=== PATIENT | female | born 1965 | race Caucasian/White ===

== ENCOUNTER → 2022-06-07 10:28 | Outpatient (BNVA) | payer MEDICARE, SELFPAY | PROVIDERS: Family Provider Internal Medicine; PCP Internal Medicine; Visit Provider Specialist | DX: M16.12 Unilateral primary osteoarthritis, left hip (principal) | CPT/HCPCS: 73502; 87070; 87641; 99205 ==

== ENCOUNTER 2022-06-20 16:08 | Observation (INO) | payer MEDICARE, SELFPAY ==
[2022-06-16 11:04] VITALS: BMI 22.3
[2022-06-16 11:55] LABS: Basophils # 0.1 10^3/uL (0.0-0.1); Eosinophils # 0.1 10^3/uL (0.0-0.8); Eosinophils % 1.1 %; Hematocrit 41.2 % (37.0-47.0); Hemoglobin 13.6 g/dL (11.5-15.3); Lymphocytes % 37.1 %; Mean Corpuscular Hemoglobin 30.5 pg (28.0-34.0); Mean Corpuscular Volume 92.4 fl (81-99); Mean Platelet Volume 9.9 fL (7.4-10.4); Monocytes # 0.6 10^3/uL (0.2-0.9); Monocytes % 7.9 %; Neutrophils # 4.22 10^3/uL (1.8-7.7); Neutrophils % 52.7 %; Nucleated Red Blood Cells % 0 %; Platelet Count 353 10^3/cmm (130-400); Red Blood Count 4.46 10^6/uL (4.1-5.3)
--- NOTE | 2022-06-16 11:55 | P.ANESASSM_ITS ---
Pre-Anesthetic Assessment Height/Weight: Height 1.6 m Weight 57.153 kg Operation Date: 06/20/22 13:45 Proposed Procedures p LEFT TOTAL HIP ARTHROPLASTY 17090 M16.9(Left) - Jessica Osorio MD Familial anesthetic complications: none Was Beta Peter taken within 24 hours: N/A Was Clonidine taken within 24 hours: N/A Social Tobacco and No alcohol Exam alert, oriented x 3 and regular rate & rhythm Airway Submandibular: within normal limits Cervical ROM: within normal limits Mallampati: Class II Dentition: chipped Pulmonary Chronic Obstructive Pulmonary Disease CV/HEM [place] [facility] [place] Osteoarthritis/DJD Neuropsych MS Anesthetic Plan ASA status: 3 Anesthesia: Regional (specify below) (SAB) Medications/Allergies Home Medications Medication Instructions Recorded Confirmed Last Taken Type albuterol sulfate 90 mcg/actuation 2 puff inhalation Q6H PRN 06/07/22 06/16/22 Unknown History aerosol inhaler Shortness Of Breath Or Wheezing gabapentin 100 mg capsule 100 mg PO BID 06/07/22 06/16/22 06/15/22 History hydrocodone 5 mg-acetaminophen 325 1 tab PO Q4H PRN Pain 06/07/22 06/16/22 06/16/22 History mg tablet lisinopril 10 mg tablet 10 mg PO DAILY 06/07/22 06/16/22 06/16/22 History venlafaxine 100 mg tablet 100 mg PO TID 06/07/22 06/16/22 06/16/22 History venlafaxine 75 mg capsule,extended 75 mg PO DAILY 06/07/22 06/16/22 06/16/22 History release 24 hr Allergies Allergy/AdvReac Type Severity Reaction Status Date / Time No Known Allergies Allergy Verified 06/16/22 11:06 Data Anesthesia 06/16/22 11:20 06/16/22 11:20 Short CBC 06/16/22 Range/Units 11:20 WBC 8.0 (4.0-10.0) 10^3/uL Hgb 13.6 (11.5-15.3) g/dL Hct 41.2 (37.0-47.0) % MCV 92.4 (81-99) fl Plt Count 353 (130-400) 10^3/cmm Neut % (Auto) 52.7 % Neut # (Auto) 4.22 (1.8-7.7) 10^3/uL Cardiac Studies: No Data to Display
[2022-06-16 12:11] LABS: Bilirubin Urine Neg (Negative); Blood Urine Neg (Negative); Glucose Urine UA Norm (Normal); Ketones Urine Negative (Negative); Nitrate Urine Negative (Negative); Protein Urine Neg (Negative); Urine Appearance Clear (CLEAR); Urine Color Yellow (Yellow); pH Urine 6 (5-7)
[2022-06-16 12:12] LABS: Add Urine Microscopic? YES; Leukocyte Esterase Urine Trace (Negative); RBC Urine RARE /hpf (0-2); Urobilinogen Urine Norm (Negative); WBC Urine 0-4 /hpf (0-5)
[2022-06-16 12:15] LABS: Alanine Aminotransferase 6 U/L (0-33); Alkaline Phosphatase 85 U/L (35-105); Anion Gap 12.5 (5-19); Aspartate Amino Transferase 8 U/L (0-32); Blood Urea Nitrogen 11 mg/dL (6-20); Calcium 9.2 mg/dL (8.5-10.5); Carbon Dioxide 29 mmol/L (22-29); Chloride 97 mmol/L (98-107); Globulin 2.9 g/dL (1.3-4.6); Glomerular Filtration Rate 103.8 mL/min (90-130); Glucose 76 mg/dL (65-115); Osmolality Calculated 276 mOsm/kg (285-295); Potassium 4.5 mmol/L (3.5-5.1); Sodium 134 mmol/L (136-145); Total Bilirubin 0.2 mg/dL (0.15-1.2); Total Protein 6.9 g/dL (6.6-8.7)
[2022-06-20] VITALS (18 sets, daily range): BP systolic 133–176; BP diastolic 64–99; PULSE 70–87; RESP 12–18; TEMP 36.6–37.1; O2SAT 96–100; BMI 21.9
[2022-06-20] MEDS: acetaminophen 1,000 MG/100 ML PIGGYBACK 400 MG IV ×2 (12:44→21:22)
[2022-06-20] MEDS: CELEcoxib 200 mg Capsule 400 MG PO (12:46)
[2022-06-20] MEDS: sodium chloride 0.9% 1,000 ML 30 ML IV (12:46)
--- NOTE | 2022-06-20 13:20 | P.ANESUD_ITS ---
Pre-Anesthetic Update Pre-Anesthetic Assessment: Date of Surgery/Procedure: 06/20/22 Preop Kira gnosis: Severe degenerative osteoarthritis left hip Proposed Procedure: Operation Date: 06/20/22 13:45 Proposed Procedures p LEFT TOTAL HIP ARTHROPLASTY 81089 M16.9(Left) - Jessica Osorio MD Any changes to Pre-Anesthetic Assessment?: No Last Intake: Intake Last Liquid Date 06/19/22 Last Liquid Time 10:00 Last Solid Date 06/20/22 Last Solid Time 09:00 Vitals: Temperature 98.1 F 06/20/22 12:31 Temperature Source Temporal Artery S can 06/20/22 12:31 Pulse Rate 84 06/20/22 12:31 Respiratory Rate 18 06/20/22 12:31 Blood Pressure 175/99 06/20/22 12:31 Blood Pressure Rose n 124 06/20/22 12:31 Pulse Oximetry 100 06/20/22 12:31 Oxygen Delivery Me thod 06/20/22 12:36 Exam: Pre-Anes Outpt Exam: alert, oriented x 3, clear to auscultation bilaterally and regular rate & rhythm Other Pertinent Information: Other Pertinent Information: Discussed possibilty of MS exacerbation with spinal and general anesthesia. After discussion with patient, decision was made to proceed with general anesthesia d/t patient preference and potentially lower risk of exacerbation Cardiac Studies: No Data to Display
[2022-06-20] MEDS: vancomycin 1,000 MG in sodium chloride 0.9% 250 ML 250 MG IV (13:25)
[2022-06-20] MEDS: midazolam 1 mg/mL INJ 2 mL 2 MG IVP (13:27)
--- NOTE | 2022-06-20 14:16 | W.PM.OPSUD ---
Surgery/Procedure H&P Update DATE OF PROCEDURE: June 20, 2022 DATE H&P PERFORMED: 06/07/22 H&P UPDATE INFORMATION: I have reviewed H&P completed within last 30 days, I have examined patient prior to procedure, No changes to prior documentation and H[place] is [place] [facility] date indicated PREOP DIAGNOSIS: Severe degenerative osteoarthritis left hip PLANNED PROCEDURE: Operation Date: 06/20/22 13:45 Proposed Procedures p LEFT TOTAL HIP ARTHROPLASTY 98339 M16.9(Left) - Jessica Osorio MD Related Problem List Diagnoses (1) Primary osteoarthritis of left hip:
[2022-06-20] MEDS: ceFAZolin 2,000 MG in sodium chloride 0.9% (plus) 50 ML 100 MG IV ×2 (14:23→22:12)
[2022-06-20] MEDS: tranexamic acid 1,000 mg/10mL SDV 1000 MG IV (14:53)
[2022-06-20] MEDS: ceFAZolin 1,000 mg SDV 1000 MG IRRIGATION (15:00)
--- NOTE | 2022-06-20 17:10 | XRR_ITS ---
PROCEDURE INFORMATION: Exam: XR Pelvis Exam date and time: 06/20/2022 5:32 PM Age: 57 years old Clinical indication: Device placement; Other: Left total hip arthroplasty; Prior surgery; Surgery date: Post-operative (0-2 days); Additional info: Left total hip arthroplasty, low ap pelvis TECHNIQUE: Imaging protocol: Radiologic exam of the pelvis. Views: 1 or 2 view. Total images: 2 COMPARISON: CR XR hip LT 2-3V wo/w pel* [id number] 06/07/2022 10:29 AM FINDINGS: Tubes, catheters and devices: The prosthesis appears near anatomic in positioning. No parallel lucencies adjacent to the prosthesis are seen to suggest loosening. No acute fractures, subluxation, nor dislocation. Bones/joints: Left hip arthroplasty is present. Right hip arthroplasty is present. Dystrophic calcifications adjacent to the right hip unchanged. Soft tissues: Skin isak subcutaneous emphysema are present from recent surgery. Vasculature: Incidental phleboliths noted. Moderate atherosclerotic disease is evident. XR/XR pelvis 1-2V* [id number] IMPRESSION: Status post recent left hip arthroplasty without complication.
--- NOTE | 2022-06-20 17:29 | P.OP_ITS ---
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 Additional adductor contracture. Procedure done: Left total hip arthroplasty with separate incision adductor tenotomy Implants: The [employer]ara total hip system with the following implants: A 52 mm by E Trident II clusterhole acetabular shell with 2 screws size 20 x 6.5 mm and size 15 x 6.5 mm and a dome hole plug, an MDM cementless liner 42 mm inner diameter by E alpha code and Accolade II size 3 with 127 degree neck angle hip stem with a 28 mm outer diameter +4 mm neck offset and a mosque X3 insert size 28 mm inner diameter by 42E. Bone grafting of acetabular cysts utilizing a combination of the [place] DBM plus putty with cancellous bone and Vitoss Specimens removed/disposition: Femoral head to pathology Pathology: Femoral head for sectioning. Surgeon: Jessica Osorio Drive Thru Order Taker: [facility] operating room technicians Anesthesia: General (Intubated, ASA 3) Estimated blood loss (mL): 200 IV fluids (mL): 1,800 Urine output (mL): 450 Complications: None Findings: Severe collapse of the femoral head with significant deformity. Large cystic changes within the acetabulum which were bone grafted with a combination of DBM putty plus and Vitoss. Stability was noted with the leg flexed to 90 degrees. Internal rotation of 90 degrees and adduction of 30 degrees resulted in instability as well. The hip was also stable to external rotation. The adductor tendon was noted to be very tight, and decision was made to perform an adductor tenotomy. Condition: stable Disposition: PACU (Then to floor for postoperative rehabilitation and pain management) Brief History: This is a 57 year old female patient here today for left total hip arthroplasty. She explains her left hip pain has been going on for over a year. She explains in the last 6 months it has significantly worsened. Patient was referred by [facility]ir[facility] hurst, where she was previously evaluated. She reports pain to her left hip radiating into her groin and left lower extremity. She explains she has difficulty walking and has to wobble in order to ambulate.? She explains walking, standing, sitting, and bending causes her pain to become worse. She reports popping and cracking noises. She states her hip pain wakes her up multiple times a night. She rated her pain a 9/10 at her initial visit with me. She reports a surgical history of a right total hip arthroplasty performed in [place] approximately 12 years ago.? She notes that this right total hip resulted in an increased leg length to the right side.? Risks and complications were discussed at the patient's office visit. Consents were signed and questions were answered. Procedure: Patient was brought to the operating theater.? She was transferred to the operating room table.? The patient had a general anesthetic intubated, ASA 3 uneventfully.? Following administration of adequate anesthesia, the patient was placed in full lateral position and held in position with a pegboard.? The patient's left lower extremity was then prepped and draped in usual fashion utilizing DuraPrep.? It was draped free.? Following prepping and draping, a surgical pause was performed. At the time of surgical pause, we identified the site and side of surgery.? We also identified the patient and preoperative surgical markings.? Confirmation was made of equipment availability.? Additionally, the patient's preoperative IV antibiotic, Ancef 2 g as well as vancomycin 1 g due to previous MRSA history, was confirmed as being given in a timely fashion and being the appropriate antibiotic.? She received TXA 1 g preoperatively as well 1 g postoperatively. Following the surgical pause, an incision was made centering over the patient's greater trochanter continuing proximally and distally as necessary to allow access to the hip joint.? Dissection continued through skin and soft tissues using a scalpel, and hemostasis was obtained using electrocautery. The tensor fascia kay was identified and incised longitudinally.? Sciatic nerve was identified and protected throughout the surgical procedure.? A Charnley U retractor was placed after the tensor fascia kay had been incised longitudinally, and the sciatic nerve had been identified.? The piriformis muscle was identified and tagged. Piriformis muscle along with the remaining short external rotators were then incised from the posterior aspect of the hip joint. These were retracted posteriorly. ? The capsule was entered in a T-type fashion with the edges being tagged.? The hip was then dislocated. The head was noted to be very deformed with significant loss of bone and cartilage. There was significant collapse and it was very misshapened. Following hip dislocation, a femoral neck osteotomy was accomplished in the appropriate position. The femoral head was sent to pathology for further evaluation. We then evaluated the acetabulum.? We noted we were able to deepen slightly, however, given the severely misshapen acetabulum, we did not wish to over deepen.? Following femoral neck osteotomy, the femur was retracted anteriorly.? Soft tissues were retracted and the labrum was removed.? Soft tissues were removed from within the acetabulum prior to the reaming process.? We then began reaming.? We deepened the acetabulum utilizing a smaller reamer.? Evaluation of the acetabulum was accomplished, and we were able to ream to 51 mm to allow for a size 52 mm acetabular shell. The acetabular component was impacted into position after the cyst within the acetabulum had been cleared of the fibrous tissue. They were also bone grafted with a combination of DBM putty plus and Vi toss. This was further reamed into the cystic structures by a reamer on reverse. It was noted that the acetabular component matched the bony anatomy.? The cup was noted to seat nicely, but due to the severe sclerotic change about this hip, we elected to place a multiholed cup so that we could place 2 screws for better fixation of the cup. The screws were placed uneventfully and had good purchase.? The MDM cementless liner was impacted into position and care was taken to assure that it completely seated.? Attention was directed to the proximal femur.? The proximal femur was lifted out of the wound with difficulty.? A canal finder was passed, and we then used the reamer to lateralize.? We then began broaching. We broached sequentially and a size 3 gave excellent fit and fill. A calcar reamer was then used.? With the size 3 broach, trial reduction was accomplished initially with a size +0 mm offset femoral head.? The patient was stable with this construct, but it was not felt to have addressed her significant leg length discrepancy from preop. Therefore, we did place a +4 mm offset femoral head.? With this in place, we had the above stabilities, and at that time, we felt that we had restored normal leg lengths.? We also felt that we had excellent stability noted above. Therefore, trial components were removed after the hip was dislocated.? The size 3 Accolade II 127 degree neck angle hip stem was impacted into position without difficulty and onto this was placed a +4 mm offset by 28 mm outer diameter femoral head inside of the MDM size 42E insert with a 28 mm inner diameter.? With this construct, we had the above-noted stability.? The stem was noted to seat nicely prior to placement of the femoral head.? The wound was copiously irrigated with Betadine.? At this time, with all components in appropriate position, the hip was reduced.? Following reduction of the prosthesis once again, we confirmed the stability of the hip.? Leg lengths were also felt to be satisfactory. Being satisfied with the prosthesis, attention was directed to closure.? Closure was accomplished with 0 Vicryl in the capsular tissues.? Piriformis was reattached with 0 Vicryl as well.? Tensor fascia kay was closed with 0 Vicryl in an interrupted fashion.? The subcutaneous tissues were closed with 2 deeper 0 Vicryl suture followed by 2-0 Monocryl.? Vancomycin powder and a Gelfoam thrombi n mixture was placed into the wound as well.? The skin was closed with 3-0 Monocryl followed by Dermabond, Prineo, and OpSite.? The patient was placed in an abduction pillow.? The patient was then rolled onto her back. The groin was prepped with Betadine to allow an abductor tenotomy. The abductor tenotomy was accomplished with a 12 blade. Following accomplishment of the abductor tenotomy, the incision site was addressed with Dermabond and a 4 x 4. She was returned the Recovery Room in a satisfactory condition and will be discharged to the floor for postoperative rehabilitation and pain management.? There were no complications. Related Problem List Diagnoses (1) Primary osteoarthritis of left hip:
--- NOTE | 2022-06-20 17:41 | SUR.PHASEI ---
1722 PT TO PACU 5 AWAKE ALERT TALKATIVE, GOOD RESP EFFORT LT HIP SITE D/I FIRST ICE TO SITE. BILAT FOOT PUMPS ON , DISTAL LT FOOT PINK WARM WITHS STRONG REGULAR PULSE NOTED AND MARKED MONITOR SR WITH NO ECTOPY WARM BLANKETS X 3.
[2022-06-20] MEDS: meperidine 50 mg/mL INJ 12.5 MG IVP (17:42)
--- NOTE | 2022-06-20 17:51 | SUR.PHASEI ---
PT AWAKE ALERT PT SHIVERING SEE MED GIVEN PT REMAINS AWAKE ALERT WARM BLANKETS X 3 TO PT, VSS PT STATES PAIN IS BETTER NOW, NS 1000ML UP AT KVO RATE PER GRAVITY TO RT HAND #20 JELCO. MONITOR REMAINS SR NO ECTOPY, VSS. PT TAKING ICE CHIPS
--- NOTE | 2022-06-20 18:18 | ANE.PACU2 ---
Inpatient post-anesthesia follow up: Airway intact: Yes Vital signs: Temperature 98.3 F Pulse Rate 70 Respiratory Rate 18 Blood Pressure 147/81 Pulse Oximetry 100 Oxygen Delivery Me thod Room Air Oxygen Flow Rate 8 Fraction of Inspir ed Oxygen Hydration adequate: Yes Nausea and vomiting: No Pain level: 1 Mental status: Baseline
--- NOTE | 2022-06-20 18:20 | SUR.PHASEI ---
PT TO FLOOR AWAKE ALERT TALKATIVE WITH FAMILY IN ROOM HANDOFF AT BEDSIDE WITH IDALIA OQUENDO, LT HIP DRESSING D/I UNCHANGED , AND DISTAL LT FOOT UNCHANGED, PT REQUESTS COFFEE TO DRINK ,
[2022-06-20] MEDS: oxyCODONE 5 mg IR Tab/Cap PO ×2 (18:28→22:10)
[2022-06-20] MEDS: gabapentin 100 mg Capsule PO (18:29)
[2022-06-20] MEDS: sennosides-docusate Tablet 2 TAB PO (18:29)
[2022-06-20] MEDS: sulfamethoxazole-trimeth DS 160-800 mg Tablet 1 TAB PO (18:29)
[2022-06-20] MEDS: iron polysaccharide complex 150 mg Capsule PO (18:29)
[2022-06-20] MEDS: calcium carbonate 500 mg Chew Tablet 1000 MG PO (18:29)
[2022-06-20] MEDS: chlorhexidine gluconate 0.12% Btl 473 mL 30 ML MUCOUS MEM (21:22)
[2022-06-20] MEDS: CELEcoxib 200 mg Capsule PO (21:22)
[2022-06-21] VITALS (7 sets, daily range): BP systolic 104–133; BP diastolic 64–82; PULSE 79–88; RESP 16–19; TEMP 36.6–37.5; O2SAT 97–100
[2022-06-21] MEDS: oxyCODONE 5 mg IR Tab/Cap PO ×3 (02:16→10:25)
[2022-06-21 03:56] LABS: Basophils % 0.3 %; Eosinophils % 0.1 %; Hematocrit 28.7 % (37.0-47.0); Hemoglobin 9.4 g/dL (11.5-15.3); Lymphocytes # 1.4 10^3/uL (0.8-4.8); Lymphocytes % 12.2 %; Mean Corpuscular HGB Conc 32.8 g/dL (30.0-36.0); Mean Corpuscular Hemoglobin 30.9 pg (28.0-34.0); Mean Corpuscular Volume 94.4 fl (81-99); Mean Platelet Volume 10.3 fL (7.4-10.4); Monocytes % 8.5 %; Neutrophils % 78.5 %; Nucleated Red Blood Cells % 0 %; Platelet Count 303 10^3/cmm (130-400); Red Blood Count 3.04 10^6/uL (4.1-5.3); Red Cell Distribution Width 14.3 % (12.1-15.1); White Blood Count 11.7 10^3/uL (4.0-10.0)
[2022-06-21] MEDS: acetaminophen 1,000 MG/100 ML PIGGYBACK 400 MG IV ×2 (04:39→12:04)
[2022-06-21 04:52] LABS: Anion Gap 11.6 (5-19); Blood Urea Nitrogen 7 mg/dL (6-20); Calcium 8.4 mg/dL (8.5-10.5); Carbon Dioxide 24 mmol/L (22-29); Chloride 101 mmol/L (98-107); Glomerular Filtration Rate 103.8 mL/min (90-130); Glucose 138 mg/dL (65-115); Osmolality Calculated 274 mOsm/kg (285-295); Potassium 4.6 mmol/L (3.5-5.1); Sodium 132 mmol/L (136-145)
[2022-06-21] MEDS: ceFAZolin 2,000 MG in sodium chloride 0.9% (plus) 50 ML 100 MG IV (05:53)
[2022-06-21] MEDS: aspirin 325 mg EC Tablet PO (08:50)
[2022-06-21] MEDS: venlafaxine ER (24HR) 75 mg Capsule PO (08:51)
[2022-06-21] MEDS: lisinopril 10 mg Tablet PO (08:51)
[2022-06-21] MEDS: calcium carbonate 500 mg Chew Tablet 1000 MG PO (08:52)
[2022-06-21] MEDS: cholecalciferol (vitamin D3) 1,000 unit Tablet 1000 UNIT PO (08:52)
[2022-06-21] MEDS: sennosides-docusate Tablet 2 TAB PO (08:52)
[2022-06-21] MEDS: CELEcoxib 200 mg Capsule PO (08:52)
[2022-06-21] MEDS: multivitamin therapeutic Tablet 1 TAB PO (08:52)
[2022-06-21] MEDS: iron polysaccharide complex 150 mg Capsule PO (08:52)
[2022-06-21] MEDS: sulfamethoxazole-trimeth DS 160-800 mg Tablet 1 TAB PO (08:52)
[2022-06-21] MEDS: chlorhexidine gluconate 0.12% Btl 473 mL 30 ML MUCOUS MEM (08:54)
--- NOTE | 2022-06-21 11:33 | ECG_ITS ---
[facility] Test Date: 2022-06-21 Pat Name: Dyan Baker Department: Room: 261 Gender: Female Resident Program Specialist: : [id number] Requested By: Jessica Osorio Order Number: [id number] Sreedhar MD: Kendra Rascon M.D. Measurements Intervals [place] Rate: 75 P: 71 AR: 119 QRS: 50 QRSD: 93 T: 49 QT: 383 QTc: 430 Interpretive Statements SINUS RHYTHM WITH SHORT AR INTERVAL No previous ECG available for comparison Electronically Signed On 06-21-2022 18:27:05 SERVICE DESK TEAM LEAD by Kendra Rascon M.D. [email or web address]
[2022-06-21 12:18] LABS: Glucose Point of Care 155 mg/dL (70-110)
--- NOTE | 2022-06-21 13:34 | PM.DCS ---
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 Bone grafting of acetabular cysts utilizing a combination of the [employer] DBM plus putty with cancellous bone and Vitoss. Status: Acute (2) Primary osteoarthritis of left hip: Status: Acute Reason for Visit Reason for Visit: Severe osteoarthritis left hip Brief History: This is a 57 year old female patient here today for left total hip arthroplasty. She explains her left hip pain has been going on for over a year. She explains in the last 6 months it has significantly worsened. Patient was referred by [facility], where she was previously evaluated. She reports pain to her left hip radiating into her groin and left lower extremity. She explains she has difficulty walking and has to wobble in order to ambulate.? She explains walking, standing, sitting, and bending causes her pain to become worse. She reports popping and cracking noises. She states her hip pain wakes her up multiple times a night. She rated her pain a 9/10 at her initial visit with me. She reports a surgical history of a right total hip arthroplasty performed in [place] approximately 12 years ago.? She notes that this right total hip resulted in an increased leg length to the right side.? Risks and complications were discussed at the patient's office visit.? Consents were signed and questions were answered. Hospital Course Hospital Course Patient was admitted under observation status for same-day surgery in the form of left total hip arthroplasty. Patient was admitted to the floor for postoperative pain management and rehabilitation. She did well following her surgical procedure. When she was seen in the early afternoon, she had participated in physical therapy. She was thrilled with her hospital experience and was ready for discharge to home. She did have a little dizziness in the morning, but this had resolved. She had no complaints at the time of discharge. There was no calf tenderness. She was neurologically intact. She felt independent and ready for discharge. Questions were answered with both her and her . She was discharged to home. Physical Exam Const: COMMON NORMALS: no acute distress, average body habitus, patient oriented x3 and alert GENERAL APPEARANCE: cooperative and comfortable ORIENTATION/CONSCIOUSNESS: Yes awake HENMT: COMMON NORMALS: normocephalic and atraumatic HEAD & SCALP: normocephalic and atraumatic Eye: GENERAL EYE: appearance normal, both eyes and all related structures Chest: COMMONS NORMALS: normal inspection of the chest Resp: COMMON NORMALS: normal respiratory effort EFFORT & INSPECTION: Yes able to speak in complete sentences and Yes symmetric chest movement Neuro: COMMON NORMALS: patient oriented x3 SENSORIUM/ORIENTATION: Yes alert Psych: COMMON NORMALS: mental status grossly normal APPEARANCE: Yes grossly normal ATTITUDE: Yes calm and Yes engaged ATTENTION/CONCENTRATION: Yes attention grossly intact Skin: COMMON NORMALS: no rashes or lesions noted GENERAL SKIN EXAM: no rashes or lesions noted Urinary Catheter Management: Maldonado: Cath Placed During This Visit: yes, but has since been removed by the nurse Reason for Continuing Indwelling Catheter: Required Immobilization for Trauma or Surgery or Anesthesia Urinary Catheter Date of Insertion: 06/20/22 Urinary Catheter Time of Insertion: 16:57 Date Urinary Catheter Removed: 06/21/22 Time Urinary Catheter Discontinued: 06:05 Discharge Data Studies Completed and Pending Completed Studies During Hospitalization Category Date Time Status XR pelvis 1-2V* [id number] Routine Exams 06/20/22 17:10 Completed Pending at discharge Category Date Time Status Pathology: Surgical [PTH] Routine Pth 06/20/22 16:57 Received Radiology Impressions Pelvis X-Ray 06/20/22 17:10 IMPRESSION: Status post recent left hip arthroplasty without complication. Laboratory Results WBC 11.7 10^3/uL (4.0-10.0) H 06/21/22 02:59 RBC 3.04 10^6/uL (4.1-5.3) L 06/21/22 02:59 Hgb 9.4 g/dL (11.5-15.3) L 06/21/22 02:59 Hct 28.7 % (37.0-47.0) L 06/21/22 02:59 MCV 94.4 fl (81-99) 06/21/22 02:59 MCH 30.9 pg (28.0-34.0) 06/21/22 02:59 MCHC 32.8 g/dL (30.0-36.0) 06/21/22 02:59 RDW 14.3 % (12.1-15.1) 06/21/22 02:59 Plt Count 303 10^3/cmm (130-400) 06/21/22 02:59 MPV 10.3 fL (7.4-10.4) 06/21/22 02:59 Neut % (Auto) 78.5 % 06/21/22 02:59 Lymph % (Auto) 12.2 % 06/21/22 02:59 Price % (Auto) 8.5 % 06/21/22 02:59 Eos % (Auto) 0.1 % 06/21/22 02:59 Baso % (Auto) 0.3 % 06/21/22 02:59 Neut # (Auto) 9.20 10^3/uL (1.8-7.7) H 06/21/22 02:59 Lymph # (Auto) 1.4 10^3/uL (0.8-4.8) 06/21/22 02:59 Price # (Auto) 1.0 10^3/uL (0.2-0.9) H 06/21/22 02:59 Eos # (Auto) 0.0 10^3/uL (0.0-0.8) 06/21/22 02:59 Baso # (Auto) 0.0 10^3/uL (0.0-0.1) 06/21/22 02:59 Nucleated RBC % (auto) 0 % 06/21/22 02:59 Nucleated RBCs # 0.0 /100WBC 06/21/22 02:59 Sodium 132 mmol/L (136-145) L 06/21/22 02:59 Potassium 4.6 mmol/L (3.5-5.1) 06/21/22 02:59 Chloride 101 mmol/L (98-107) 06/21/22 02:59 Carbon Dioxide 24 mmol/L (22-29) 06/21/22 02:59 Anion Gap 11.6 (5-19) 06/21/22 02:59 BUN 7 mg/dL (6-20) 06/21/22 02:59 Creatinine 0.6 mg/dL (0.5-0.9) 06/21/22 02:59 GFR Calculation 103.8 mL/min (90-130) 06/21/22 02:59 Glucose 138 mg/dL (65-115) H 06/21/22 02:59 POC Glucose 155 mg/dL (70-110) H 06/21/22 11:23 Calculated Osmolality 274 mOsm/kg (285-295) L 06/21/22 02:59 Calcium 8.4 mg/dL (8.5-10.5) L 06/21/22 02:59 Total Bilirubin 0.2 mg/dL (0.15-1.2) 06/16/22 11:20 AST 8 U/L (0-32) 06/16/22 11:20 ALT 6 U/L (0-33) 06/16/22 11:20 Alkaline Phosphatase 85 U/L (35-105) 06/16/22 11:20 Total Protein 6.9 g/dL (6.6-8.7) 06/16/22 11:20 Albumin 4.0 g/dL (3.5-5.2) 06/16/22 11:20 Globulin 2.9 g/dL (1.3-4.6) 06/16/22 11:20 Urine Color Yellow (Yellow) 06/16/22 11:20 Urine Appearance Clear (CLEAR) 06/16/22 11:20 Urine pH 6 (5-7) 06/16/22 11:20 Ur Specific [place] 1.010 (1.005-1.030) 06/16/22 11:20 Urine Protein Neg (Negative) 06/16/22 11:20 Urine Glucose (UA) Norm (Normal) 06/16/22 11:20 Urine Ketones Negative (Negative) 06/16/22 11:20 Urine Blood Neg (Negative) 06/16/22 11:20 Urine Nitrate Negative (Negative) 06/16/22 11:20 Urine Bilirubin Neg (Negative) 06/16/22 11:20 Urine Urobilinogen Norm mg/dL (Negative) 06/16/22 11:20 Ur Leukocyte Esterase Trace (Negative) H 06/16/22 11:20 Urine RBC Rare /hpf (0-2) 06/16/22 11:20 Urine WBC 0-4 /hpf (0-5) H 06/16/22 11:20 Ur Squamous Epith Cells None /hpf (0-5) 06/16/22 11:20 Amorphous Sediment Not Reportable 06/16/22 11:20 Urine Bacteria None /hpf (NONE) 06/16/22 11:20 Vitals Last Vital Signs Temp 97.8 F 06/21/22 08:14 Pulse 79 06/21/22 12:00 Resp 18 06/21/22 12:00 BP 104/64 06/21/22 12:00 Pulse Ox 100 06/21/22 12:00 O2 Del Method 06/21/22 04:14 O2 Flow Rate 8 06/20/22 17:30 Discharge Plan Discharge Patient Disposition: Home Health Service Condition: Stable Prescriptions: New celecoxib 200 mg Capsule 200 mg PO 1XD 30 Days Qty: 30 0RF acetaminophen 500 mg Tablet 1,000 mg PO Q8H 15 Days Qty: 90 0RF aspirin 325 mg Tablet,Delayed Release (Dr/Ec) 325 mg PO DAILY 30 Days Qty: 30 0RF oxycodone 5 mg Tablet 5 mg PO Q4H PRN (Reason: Moderate Pain) 7 Days Qty: 30 0RF Continued venlafaxine 100 mg tablet 100 mg PO TID gabapentin 100 mg capsule 200 mg PO BEDTIME lisinopril 10 mg tablet 10 mg PO DAILY albuterol sulfate 90 mcg/actuation HFA aerosol inhaler 2 puff inhalation Q6H PRN (Reason: Shortness Of Breath Or Wheezing) venlafaxine 75 mg capsule,extended release 24hr 75 mg PO DAILY sulfamethoxazole-trimethoprim [Bactrim DS] 800-160 mg tablet 1 tab PO BID 10 Days Qty: 20 0RF Rx Instructions: Take 1 tablet by mouth twice daily Held hydrocodone-acetaminophen 5-325 mg tablet 1 tab PO Q4H PRN (Reason: Pain) Hold Instructions: Resume on 06/28/22. Hold until oxycodone runs out. If you resume this medication, calculate scheduled Tylenol dosing. 3000 mg a day maximum. Discharge Orders: Discharge Order (Routine); Ordered 06/21/22 Ordered By: Jessica Osorio Other Ambulatory Orders: DME: Walker (Order) Location: None Selected Ordered By: Jessica Osorio Referrals: [facility] [place] [facility] Home Care ([facility]) [Outside] Jessica Osorio MD [Physician] - 07/04/22 9:15 am Margarita Tripp DO [Primary Care Provider] - 06/23/22 10:00 am Discharge Diet: Advance as tolerated and Usual diet Discharge Activity: Increase activity as tolerated, Limit activity as instructed and Use walker/crutches as instructed Patient Instructions: Oxycodone, Rapid Release (By mouth), Celecoxib (By mouth), Precautions after Total Joint Replacement Surgery (GEN), Total Hip Replacement (GEN), Hip Abduction Pillow (DC), Joint Replacement Stoplight, Opioid Safety Activity Restrictions/Additional Instructions: Posterior hip precautions. Ice to left hip. Weightbearing as tolerated. Gait training and strengthening per physical therapy. Discharge Attestations Time Spent in Discharge Care*: greater than 30 min Quality Metrics Clinical Quality Measures [ No reported AMI, CVA or VTE this stay] Coding Level of Care Code Acute Chg FW DC note Diagnoses Status post total hip replacement, left Z96.642 Primary osteoarthritis of left hip M16.12
== END 2022-06-21 14:19 | disposition home health service (06) ==
LOC: MEDSURG 16:08
PROVIDERS: Admitting Provider Specialist; PCP Family Medicine; Visit Provider Specialist
PROC: (CPT 27130; principal; 2022-06-20 13:25)
DX: M16.12 Unilateral primary osteoarthritis, left hip (principal); J44.9 Chronic obstructive pulmonary disease, unspecified; I10 Essential (primary) hypertension
CPT/HCPCS: 27130; 36415; 36416; 51702; 72170; 80048; 80053; 81001; 82962; 85025; 88304; 88311; 93005; 97110; 97116; 97161; 97165; 97535; C1713; C1776; G0378; J0131; J0690; J1100; J1170; J2175; J2250; J2405; J2704; J3010; J3370; J3490; J7030